=== PATIENT | male | born 1975 | race Caucasian/White ===

== ENCOUNTER 2021-02-15 22:34 | Emergency (ER) | payer OTHER, SELFPAY ==
[2021-02-15 22:45] VITALS: BP 160/98; PULSE 58; RESP 15; TEMP 36.8; O2SAT 99
--- NOTE | 2021-02-16 01:23 | ED.SKABFB ---
HPI - Skin/Abscess/Foreign Bdy General Chief complaint: Skin/Abscess/Foreign Body Stated complaint: bites Time Seen by Provider: 02/16/21 01:09 Source: patient and RN notes reviewed Mode of arrival: ambulatory Limitations: no limitations History of Present Illness HPI narrative: This is a 45 year old male who presents for evaluation of a rash to his back. He states last night he woke up with feeling itching on his back like he was bit by an insect. He continued to having itching so he asked his to look at his back tonight. His noticed 2 large itching spots on his back. He took Benadryl and applied some cream without any relief. He states it is not tender. He denies nausea, vomiting or fever. She denies any additional rashes. Related Data Allergies Allergy/AdvReac Type Severity Reaction Status Date / Time Sulfa (Sulfonamide Allergy Unknown Rash Verified 05/24/20 14:33 Antibiotics) venom-wasp Allergy Unknown swelling,it Verified 05/24/20 14:33 aida Review of Systems Review of Systems: All systems reviewed & are unremarkable except as noted in HPI and below Constitutional: Constitutional: Denies chills, Denies fever(s) and Denies weakness Cardiovascular: Cardiovascular: Denies chest pain Respiratory: Respiratory: Denies dyspnea Gastrointestinal: Gastrointestinal: Denies nausea and Denies vomiting Integumentary/Breasts: Skin/Breast: Reports pruritus, Reports erythema and Reports rash PMFSH Past Medical History Medical History Pure hypercholesterolemia Surgical History Surgical History History of vasectomy Family History Family History Mother Family history of Alzheimer's disease Social History Social History Smoking status: Never smoker Alcohol intake: current Drinks per week: 6 Substance use: never Substance use type: does not use Gender identity (if verbalized by the patient): Male Exam Const: General: no acute distress and alert Orientation/consciousness: patient oriented x3 Resp: Effort & Inspection: normal respiratory effort Skin: Other: on patient's back there are 2 lumps approximate 6 x 7 cm there have erythematous but blanching no fluctuance, no tenderness. Neuro: General: patient oriented x3, moves all extremities and CN's II-XI intact bilaterally Psych: Mental Status: mental status grossly normal Affect: normal affect Course Reevaluation(s) Reevaluation #1: I performed a bedside US. no abscess seen. This is likely an allergic response but will place on antibiotics. Date: 02/16/21 Time: 01:28 Vital Signs Vital signs: Vital Signs Temperature 98.3 F 02/15/21 22:45 Pulse Rate 58 L 02/15/21 22:45 Respiratory Rate 15 02/15/21 22:45 Blood Pressure 160/98 H 02/15/21 22:45 Pulse Oximetry 99 02/15/21 22:45 Temperature 98.3 F 02/15/21 22:45 Pulse Rate 60 02/16/21 02:10 Respiratory Rate 18 02/16/21 02:10 Blood Pressure 142/71 H 02/16/21 02:10 Pulse Oximetry 99 02/15/21 22:45 Discharge Plan Discharge Clinical Impression: Rash, Infected insect bite of back Patient Disposition: Home, Self-Care Condition: Stable Instructions: Antibiotic Form, Cellulitis (ED), Insect Bite or Sting (ED) Additional Instructions: Apply warm compress to wounds 3 times a day. Take benadryl or allergy medication for itching. Take antibiotics as prescribed. REturn if you develop fever, vomiting, weakness, difficulty breathing or pain. Prescriptions: New doxycycline monohydrate 100 mg tablet 100 mg PO BID Qty: 20 RF: 0 No Action valacyclovir [Valtrex] 1 gram tablet See Rx Instructions .ROUTE .COMPLEX Qty: 28 RF: 5 Follow-up/Referrals: Felix Otto MD [Primary Care Provider] -
[2021-02-16 02:10] VITALS: BP 142/71; PULSE 60; RESP 18
[2021-02-16] MEDS: DOXYCYCLINE HYCLATE 100 MG TABLET PO (02:10)
== END 2021-02-16 02:10 | disposition home or self-care (01) ==
PROVIDERS: Emergency Provider General Practice; PCP Family Medicine
DX: R21 Rash and other nonspecific skin eruption (principal); S20.462A Insect bite (nonvenomous) of left back wall of thorax, initial encounter; S20.461A Insect bite (nonvenomous) of right back wall of thorax, initial encounter; E78.00 Pure hypercholesterolemia, unspecified; W57.XXXA Bitten or stung by nonvenomous insect and other nonvenomous arthropods, initial encounter
CPT/HCPCS: 99283; A9270

== ENCOUNTER 2025-05-30 00:46 | Day surgery (SDC) | payer OTHER, SELFPAY ==
[2025-05-25 12:10] VITALS: BMI 24.7
--- NOTE | 2025-05-25 12:16 | PC.NURSE ---
Report to the Outpatient Waiting Room, entrance under the green pavilion located off [facility], at time 0800_ on date _05/30/25 Planned Procedure Time: _1000_.? Time changes happen often and if your time is changed the preop area will call you the afternoon before. - You and your visitor will be asked to self-screen and do not enter if you have any COVID symptoms. Please call surgeon if you need to reschedule. - A mask is optional within the hospital at this time. Patients may have clear liquids (water, carbonated beverages, clear teas, apple juice) until 3 hours prior to surgery with a maximum of 20 ounces. - No food from midnight until time of surgery and no smoking, or chewing tobacco (or any form of nicotine). No chewing gum, candy or mints. - Infants may have breast milk until 4 hours before surgery, infant formula 6 hours prior to surgery. - Children will be allowed to drink immediately following surgery.? If applicable, please bring a bottle or sippy cup to assist with drinking. Juice, water, soda, and popsicles are readily available.? For infants on formula, please bring formula the day of surgery.? Pacifiers are allowed. Take only the following medications with a SIP of water on the morning of surgery: ____none DO NOT STOP ANY OF YOUR OTHER PRESCRIPTION MEDICATIONS PRIOR TO SURGERY EXCEPT THE FOLLOWING Hold all vitamins and supplements for 3 days per anesthesiologist. Medications to discontinue per physician Date to take last dose Please no make-up, nail comoran, hairspray, perfume, deodorant, or body powder the day of surgery.? No jewelry (including any body piercings) or valuables the day of surgery, leave them at home.? Please take a shower or bath the night before, or the morning of, surgery with hibiclens antibacterial soap.? Wear comfortable, loose fitting clothing.? Children are encouraged to wear pajamas. - Jewelry must be removed prior to entering the operating room.? Rings and piercings that are not removed may be cut off. - The hospital will not accept responsibility for valuables.? - Please leave all valuables, including medications, at home the day of surgery. If you are going home after surgery, a licensed driver messenger must drive you home.? - NO public transportation without another adult if you receive anesthesia. - We recommend that an adult stay with you for 24 hours following discharge. - We also recommend that you do not drive, make important decision, drink alcoholic beverages, or take any drugs that were not prescribed by your health care provider for at least 24 hours after your discharge time. For Pediatric surgeries, we recommend two adults accompany the child home. Follow any additional instructions given to you from your surgeon. Telephone instructions given to patient__and asked if any additional questions and then verbalized understanding. Patient advised to call surgeon office or pre surgery nurse liaison [phone] if any additional questions.
[2025-05-30] VITALS (8 sets, daily range): BP systolic 124–162; BP diastolic 72–95; PULSE 62–88; RESP 14–20; TEMP 36.3–36.6; O2SAT 97–100; BMI 24.7
--- OUTSIDE RECORDS SUMMARY | 2025-05-30 00:50 | XMS_ITS | Clinical Summary ---
Author Organization [facility] Address [facility] [place] [address] Care Team Providers Care Ore Dryer Name Role Phone Felix Otto MD Primary Care Provider [phone] Source Comments [facility],non-owned Affiliates and Associated Physician Practices is amultiple site organization consisting of ambulatory clinics and hospital sitesin [place], [place], [place] and [place]. This disclosure is being madepursuant to the Care Everywhere program and may not contain all information available regarding this patient. Last updated 18.[facility] Allergies Active Allergy Reactions Criticality Noted Date Comments Sulfa Drugs Urticaria Medium 01/21/2022 Medications * Be aware that medications may not be up to date on this document. Alwaysverify current medications with the patient. EPINEPHrine (EPIPEN) 0.3 MG/0.3ML auto-injector pen Inject 1 mg into muscle as needed 04/17/2021 Active valACYclovir (VALTREX) 1 GM tablet Take 1,000 mg by mouth every 12 hours 07/24/2021 Active Social History Tobacco Use Types Packs/Day Years Used Date Smoking Tobacco: Never Smokeless Tobacco: Never Alcohol Use Standard Drinks/Week Comments Yes 0 (1 standard drink = 0.6 oz pur e alcohol) Sex and Gender Information Value Date Recorded Sex Assigned at Not on file Legal Sex Male 1:48 PM CDT Gender Identity Not on file Sexual Orientation Not on file Plan of Treatment Health Maintenance Due Date Last Done Comments COLOGUARD (AGES 45-75) - COL ON CA SCREENING 1974 COLON MONITORING 1974 COLONOSCOPY - COLON CA SCREENING 1974 CT COLONOGRAPHY - COLON CA SCREENING 1974 Colorectal Cancer Screening 1974 FIT - COLON CA SCREENING 1974 FLEX SIG - COLON CA SCREENING 1974 LIPID TESTING 1974 HIV SCREENING 1989 HEPATITIS C SCREENING 07/07/1992 DTAP/TDAP/TD VACCINES (1 - Tdap) 1993 HEPATITIS B VACCINE (1 of 3 - 19+ 3-dose series) 1993 PNEUMOCOCCAL VACCINE 50+ (1 of 1 - PCV) 2024 ZOSTER VACCINE (1 of 2) 2024 DEPRESSION SCREENING 09/08/2024 COVID-19 VACCINE (1 - 2023-2 5 season) 2025 INFLUENZA VACCINE (#1) 2025 HIB VACCINE Aged Out No longer eligi ble based on patient's age to complete this topic HPV VACCINE Aged Out No longer eligi ble based on patient's age to complete this topic MENINGOCOCCAL (Group B) VACC INE SHARED DECISION-MAKING Aged Out No longer eligibl e based on patient's age to complete this topic MENINGOCOCCAL GROUPS A/C/Y/W VACCINE Aged Out No longer eligible b ased on patient's age to complete this topic Insurance [facility] [address] Care Teams Ore Dryer Relationship Specialty Start Date End Date Felix Otto MD [address] [place] [address] PCP - General 01/08/22
[2025-05-30] MEDS: LACTATED RINGERS 1,000 ML 30 ML IV CONT ×2 (08:30→10:33)
[2025-05-30] MEDS: KETOROLAC 15 MG/ML VIAL (*BKC) IV PUSH (08:33)
[2025-05-30] MEDS: ACETAMINOPHEN 500 MG TABLET 1000 MG PO (08:33)
--- NOTE | 2025-05-30 09:07 | P.PNAN_ITS ---
Anes - Initial Pre Proc Eval Procedure: Operation Date: 05/30/25 10:00 Proposed Procedures p Transanal Hemorrhoid Dearterialization - Curt Mckeon MD Date/Time: 05/30/25 09:07 Surgeon: Curt Mckeon MD Pre Op Diagnosis: hemorrhoids Patient Data Age: 49 Gender: M Height: 1.85 m Weight: 85 kg Last Vital Signs Temp 36.6 C 05/30/25 08:23 Pulse 62 05/30/25 08:23 Resp 14 05/30/25 08:23 BP 124/95 H 05/30/25 08:23 Pulse Ox 98 05/30/25 08:23 O2 Del Method Room Air 05/30/25 08:23 Allergies Allergy/AdvReac Type Severity Reaction Status Date / Time Sulfa (Sulfonamide Allergy Unknown Rash Verified 05/30/25 08:22 Antibiotics) venom-wasp Allergy Unknown swelling,it Verified 05/30/25 08:22 aida Home Medications ?Medication ?Instructions ?Recorded ?Confirmed ?Type lidocaine HCl 3 % topical cream 1 applic topical ONCE PRN pain 05/01/23 05/25/25 Rx #28.3 grams valacyclovir 1 gram tablet 1,000 mg PO Q12H PRN outbre ak 05/25/25 05/25/25 History (Valtrex) Patient hx anesthesia problems: none Family hx anesthesia problems: none Results Review: All pre-operative results and documents have been reviewed as part of the pre- operative evaluation. [facility] Past Medical History Medical History Pure hypercholesterolemia Surgical History Surgical History History of vasectomy Family History Family History Mother Family history of Alzheimer's disease Father Arthralgia Sibling Arthralgia Social History Social History Smoking status: Never smoker Second hand tobacco smoke exposure: No Alcohol intake: current Drinks per week: 6 Substance use: never Substance use type: does not use Do You Feel Safe in your Home?: Yes Lack of Transportation: No Lack of Food: Never True Current Housing: I Have Housing Concerned About Future Housing: No Difficulty Paying Gas/Electric Bills: No Difficulty Paying for Meds: No Currently Unemployed: No Education: Master's Degree or Higher Difficulty w/ Childcare or Family Care: No Living arrangements: with family Occupation/Education: occupation Gender identity (if verbalized by the patient): Male Sexual Orientation (if Verbalized by the Patient): Straight or Heterosexual Spiritual care concerns: No Anes - Eval Final PreProcedure Day of Procedure 05/30/25 09:07 Patient weight: normal Heart: regular rate and rhythm Lungs: clear to auscultation Airway: Mallampati scale class II Neurological: alert and oriented Last oral intake: >/= 8 hours ASA classification: II Emergent: no Anesthetic plan: proceed Anesthesia type and monitoring: general ETT and standard monitoring Results Review: All pre-operative results and documents have been reviewed as part of the pre-operative evaluation. Informed Consent: The patient's anesthetic plan and its attendant risks and benefits were discussed with the patient/family/POA. Questions were solicited and answers provided to the satisfaction of the patient/family/POA.
--- NOTE | 2025-05-30 09:10 | WPDHPUPDATE1 ---
History and Physical Update Update Date/Time: 05/30/25 09:10 History and Physical has been reviewed, including an updated exam of the patient. There are NO changes in the patient's condition. Risks, benefits, and alternatives have been discussed and questions answered. Patient agrees to proceed with procedure.
[2025-05-30] MEDS: ceFAZolin 2 GM in SODIUM CHLORIDE 0.9% IV 50 ML 100 ML IVPB (09:19)
[2025-05-30] MEDS: LIDO 1%/EPINEPHRINE 1:100,000 50 ML VIAL 30 ML INFILTRATE (09:43)
--- NOTE | 2025-05-30 10:42 | W.PM.PROC2 ---
Procedure Note - Detailed Date of Procedure 05/30/25 Pre-op Diagnosis Bleeding internal hemorrhoids Post-op Diagnosis Same Procedure Performed Transanal hemorrhoidal dearterialization procedure (ultrasound Doppler localized ligation of terminal branches up hemorrhoidal arteries with proctopexy of prolapsing mucosal tissue.) Surgeon Curt Mckeon MD Health Physicist Caio Sanchez SA Anesthesia General Indications Patient is a 49-year-old gentleman presented with complaints of very frequent bleeding from his internal hemorrhoids. On examination he had large grade 3 nonthrombosed prolapsing internal hemorrhoids. He presents now for a THD procedure. Findings Patient had large nonthrombosed grade 3 prolapsing internal hemorrhoids located at the 3 o'clock, 9 o'clock, and 12 o'clock positions with the patient prone. No is or lesions in the anal canal. No significant external hemorrhoid tissue. Description of Procedure After informed consent was obtained patient brought to the operating room was placed in the supine position on the gurney and then placed under general endotracheal anesthesia. He was then turned onto the operating table in the prone awilda-knife position taking great care to make sure all the pressure points were well padded. The buttocks were then taped apart to expose the perianal region and then the area was prepped and draped in usual sterile fashion. Time-out was then performed correctly identifying the patient as well as procedure to be performed. Perioperative IV antibiotics were given. I 1st started by performing gentle manual dilation of the anal sphincters with lubricated bivalve anal speculum. I performed a circumferential evaluation of the anal canal and distal rectum there were no polyps or lesions in these areas. He had 3 large prolapsing internal hemorrhoids which were not thrombosed located at the 3 o'clock, 9 o'clock, and 12 o'clock positions with the patient prone. I then proceeded to use the specialized THD anal speculum which had a Doppler ultrasound probe attached to identify the terminal branches of the hemorrhoidal arteries located at the 1 o'clock, 3 o'clock, 5 o'clock 7 o'clock, 9 o'clock, and 11 o'clock positions. Good Doppler biphasic signals were obtained at each position and at each position a 0 Vicryl suture was placed to ligate the terminal branch of the hemorrhoidal artery. The needle operator and truck driver was placed into the specialized pivot point in the THD speculum and the suture was then passed through the slot at the end of the speculum to then place a anchoring ligating suture at each of those positions. I then proceeded to perform proctopexy of the prolapsing mucosal tissue and hemorrhoidal tissue extending all the way down to the dentate line by running the 0 Vicryl suture and a continuous nonlocking fashion. The suture was then tied down sliding the prolapsing tissue up into the anal canal above the dentate line so that we will no longer prolapse. This was done at all 6 of the above-mentioned positions. The anal canal was then irrigated sterile saline solution. Hemostasis was good at all the suture lines at the sites of the proctopexy. The anal canal opening was not significantly narrowed with a THD procedure by palpation. I then proceeded to inject a perianal block utilizing 0.5% Marcaine mixed with 1% lidocaine with some epinephrine. I then administered bilateral pudendal nerve blocks as well. There is then cleaned and then 4x4 gauze ABD pad and disposable underwear was used for final dressing. The patient tolerated the procedure well no complications. All sponges, needles, and instrument counts were correct at the end procedure. EBL was _25__cc. The patient was awakened and taken to recovery in stable and satisfactory condition. Implants None Estimated Blood Loss 25 Drains No Packing No Pathology None sent Complications No immediate complications Condition Stable Disposition PACU [facility] Billing Surgery - Charge Forward: Surgery Billing
[2025-05-30] MEDS: oxyCODONE HCL (*CRX) 5 MG TAB IR PO (11:57)
== END 2025-05-30 12:30 | disposition home or self-care (01) ==
PROVIDERS: PCP Family Medicine; Visit Provider Surgery
PROC: (CPT 46948; principal; 2025-05-30 10:00)
DX: K64.2 Third degree hemorrhoids (principal)
CPT/HCPCS: 46948; J0690; A9270; J1100; J1885; J2003; J2004; J2250; J2405; J2704; J3010; J7120

== ENCOUNTER 2025-06-03 18:26 | Emergency (ER) | payer OTHER, SELFPAY ==
--- NOTE | ~2025-06-03 | CT_ITS ---
CT abdomen pelvis w con Clinical History: abd pain, r/o sbo . Comparison: None Technique: Axial images lung bases to symphysis pubis 100 mL IV contrast Coronal, sagittal reformats CT images acquired with automatic exposure control for dose reduction DLP: 408 mGy-cm Findings: Lung bases: Clear. Visualized heart and pericardium: Unremarkable. Liver: Enlarged. Steatosis. Gallbladder: Unremarkable. Spleen: Unremarkable. Pancreas: Unremarkable. Adrenal glands: Unremarkable. Kidneys: Right kidney- No hydronephrosis. No renal stones. Left kidney- No hydronephrosis. No renal stones. Distal esophagus/stomach: Unremarkable. Small bowel loops: Normal caliber and wall thickness. Colon: Normal caliber and wall thickness. Normal RLQ appendix. Rectum stool- filled. Question mild diverticulitis sigmoid colon, axial image 126. A few diverticula. Nodes: No enlarged nodes. Peritoneum: No ascites. No free air. Urinary bladder: Unremarkable. Prostate: Unremarkable. Bones: No acute bony abnormality. Soft tissues: Unremarkable. Aorta: No aneurysm or dissection. IVC: Unremarkable. Main portal vein/SMV/splenic vein: Patent. Called by phone by myself to Dr. Weeks at 9:06 am EST. IMPRESSION: 1. Mild uncomplicated sigmoid diverticulitis not excluded. 2. Otherwise no acute abnormality. Reviewed, dictated and finalized at location R.
--- NOTE | ~2025-06-03 | XR_ITS ---
XR abdomen/kub 1V 06/03/2025 19:50 INDICATION: Constipation TECHNIQUE: KUB COMPARISON: None FINDINGS: Bowel gas pattern is normal. There is moderate retained fecal material in the distal colon and rectum. There is no evidence of free air, mass, organomegaly, ascites or obstruction. No abnormal calculi are seen. The bones appear intact. IMPRESSION: 1: No acute abdominal abnormality identified. Reviewed, dictated and finalized at location O.
[2025-06-03 19:10] VITALS: BP 176/103; PULSE 75; RESP 22; TEMP 36.6; O2SAT 98
[2025-06-03 21:44] VITALS: BP 168/91; PULSE 66; RESP 17; O2SAT 99
[2025-06-03 21:45] VITALS: BP 168/91; PULSE 69; RESP 18; O2SAT 98
[2025-06-03 21:57] LABS: Hematocrit 37.9 % (42.0-52.0); Hemoglobin 13.0 g/dL (14.0-18.0); Immature Granulocyte Percent A 0.4 % (0-0.5); Lymphocytes Absolute Auto 1.25 K/mm3 (0.9-3.2); Mean Corpuscular HGB Conc 34.3 g/dl (32-36); Mean Corpuscular Hemoglobin 29.5 pg (26-34); Mean Corpuscular Volume 86.1 fl (80-100); Nucleated Red Blood Cells Absolute Auto 0.000 K/mm3 (0.0-0.012); Nucleated Red Blood Cells Perc 0.0 % (0.0-0.2); Platelet Count Result 262 k/mm3 (150-375); Red Blood Count 4.40 M/mm3 (4.6-6.20); White Blood Count 13.9 K/mm3 (4.5-10.0)
[2025-06-03 22:11] LABS: Alanine Aminotransferase 40 U/L (6-50); Albumin Level 4.5 g/dL (3.5-5.1); Alkaline Phosphatase 81 U/L (38-126); Anion Gap 8 mmol/L (4-12); Aspartate Amino Transferase 30 U/L (17-59); Bilirubin,Total 1.1 mg/dL (0.2-1.3); Blood Urea Nitrogen 14 mg/dL (9-20); Calcium 8.8 mg/dL (8.4-10.2); Carbon Dioxide 26 mmol/L (22-30); Chloride 101 mmol/L (98-107); Estimated CRCL calculation 87 ml/min; Estimated Glomerular Filt Rate > 60; Glucose 113 mg/dL (65-110); Lipase 29 U/L (23-300); Potassium 3.4 mmol/L (3.4-5.0); Sodium 135 mmol/L (137-145); Total Protein 7.7 g/dL (6.3-8.2)
[2025-06-03] MEDS: SODIUM CHLORIDE 0.9% IV 1,000 ML 999 ML IV CONT (22:24)
--- NOTE | 2025-06-03 22:28 | PC.NURSE ---
Patient attempted to provide urine sample, unsuccessful. Patient declines request for straight cath. Patient states he will attempt to provide sample after some fluids infuse. NS bolus started per orders. Call light within reach.
--- NOTE | 2025-06-03 22:34 | PC.NURSE ---
Patient in CT at this time.
[2025-06-03 23:17] LABS: Magnesium 2.2 mg/dL (1.6-2.3)
[2025-06-03 23:37] VITALS: PULSE 74; RESP 17; O2SAT 99
--- NOTE | 2025-06-03 23:38 | PC.NURSE ---
Patient states he has had multiple small BMs but its marva sometimes but this last time it was a little more. Patient c/o pain to his rectum. ERP notified. Urine sample sent.
[2025-06-03 23:41] LABS: Add Urine Microscopic? NO; Appearance Urine Clear (Clear); Glucose Urine UA Negative (Negative); Leukocyte Esterase Ur Negative LEU/UL (Negative); Nitrate Urine Negative (Negative); Specific Grav Ur 1.038 (1.001-1.035)
--- NOTE | 2025-06-04 00:40 | PC.NURSE ---
Patient informs this RN that he had a successful large BM. ERP notified.
--- NOTE | 2025-06-04 00:49 | ED.ABDPAIN ---
HPI - Abdominal Pain General Chief Complaint: Abdominal Pain Stated Complaint: abd pain, constipation Time Seen by Provider: 06/03/25 21:45 History of Present Illness HPI narrative: Patient is a 49-year-old male who presents emergency department this evening complaining of constipation. Patient states that he has not had bowel movement in approximately 1 week since he has had a trans anal hemorrhoid the arterials a [place] procedure performed by Dr. Mckeon on 05/30. He has been on narcotics. Denies any rectal bleeding. Patient has been using [id number] therapies for constipation including prune juice, Dulcolax and probiotics with no relief. He does admit that he has passed some gas and pulse I stool but otherwise has not had a full bowel movement in approximately 1 week. States that he does have some pressure to his rectum. No additional symptoms or concerns at this time. Related Data Home Medications ?Medication ?Instructions ?Recorded ?Confirmed ?Last Taken ?Type valacyclovir 1 gram tablet 1,000 mg PO Q12H PRN outbreak 05/25/25 05/25/25 Unknown History (Valtrex) Allergies Allergy/AdvReac Type Severity Reaction Status Date / Time Sulfa (Sulfonamide Allergy Unknown Rash Verified 06/03/25 21:46 Antibiotics) venom-wasp Allergy Unknown swelling,it Verified 06/03/25 21:46 aida Review of Systems Review of Systems: All systems are reviewed and are negative unless stated otherwise in the HPI. [facility] Past Medical History Medical History Pure hypercholesterolemia Surgical History Surgical History History of vasectomy Family History Family History Mother Family history of Alzheimer's disease Father Arthralgia Sibling Arthralgia Social History Social History Smoking status: Never smoker Second hand tobacco smoke exposure: No Alcohol intake: current Drinks per week: 6 Substance use: never Substance use type: does not use Do You Feel Safe in your Home?: Yes Lack of Transportation: No Lack of Food: Never True Current Housing: I Have Housing Concerned About Future Housing: No Difficulty Paying Gas/Electric Bills: No Difficulty Paying for Meds: No Currently Unemployed: No Education: Master's Degree or Higher Difficulty w/ Childcare or Family Care: No Living arrangements: with family Occupation/Education: occupation Gender identity (if verbalized by the patient): Male Sexual Orientation (if Verbalized by the Patient): Straight or Heterosexual Spiritual care concerns: No Exam Narrative: General: Alert, awake, afebrile, in no acute distress. HEENT: PERRL, no rhinorrhea, no post nasal drip, oropharynx clear. Neck: Trachea midline, no JVD, no lymphadenopathy. Cardiovascular: Regular rate and rhythm, no murmurs, rubs or gallops, no peripheral edema. Respiratory: Clear to auscultation bilaterally, no tachypnea, no wheezing, no rhonchi, no rubs, no respiratory distress. Abdomen: Soft, nontender, nondistended, no rebound, no guarding, no peritoneal signs. Rectal: Exam performed with the presence of female nurse senior data mining analyst Irene revealed good rectal tone, no evidence of external hemorrhoids, fecal occult blood test negative, stool is medium to light brown in color, no fecal impaction, no bleeding. Musculoskeletal: No joint swelling or deformity, normal muscle tone. Skin: No rashes or petechia, no signs of infection. Psychiatric: Alert and oriented, normal behavior and judgment for situation. Neurological: Alert and oriented to person, place, and time. Follows all commands. No focal deficits, speech is clear and fluent. Course Vital Signs Vital signs: Vital Signs Temperature 97.8 F 06/03/25 19:10 Pulse Rate 75 06/03/25 19:10 Respiratory Rate 22 H 06/03/25 19:10 Blood Pressure 176/103 H 06/03/25 19:10 Pulse Oximetry 98 06/03/25 19:10 Temperature 97.8 F 06/03/25 19:10 Pulse Rate 74 06/03/25 23:37 Respiratory Rate 17 06/03/25 23:37 Blood Pressure 168/91 H 06/03/25 21:45 Pulse Oximetry 99 06/03/25 23:37 Oxygen Delivery Room Air 06/03/25 21:45 MDM - Abdominal Pain MDM Narrative Medical decision making narrative: The patient was evaluated by myself in the emergency department. History is obtained from patient who is an independent historian and physical exam was performed. External medical records were reviewed at this time. IV was established and pertinent tests were ordered. Patient was administered 1 L IV fluid bolus with normal saline. Laboratory results obtained revealing leukocytosis of 13.9, otherwise unremarkable. Urinalysis unremarkable. Imaging studies obtained included abdominal x-ray which was independently interpreted by me revealing no acute process, which is pending final radiology interpretation. At this time, CT abdomen pelvis with IV contrast was obtained and inability interpreted by me revealing no acute process, no evidence of bowel obstruction, moderate amount of stool throughout the colon, large amount of stool in the rectum, normal appendix. Differential diagnosis considerations include bowel obstruction, constipation, fecal impaction. Comorbidities impacting this visit include recent hemorrhoid surgery and current narcotic use. I have evaluated and discussed social determinants of health with the patient that could potentially impact subsequent diagnosis and treatment plans. On repeat assessment of the patient, reevaluation revealed that the patient is doing well and is in no acute distress. Patient symptoms have improved since he arrived to our emergency department. Patient has had multiple bowel movements while waiting in the emergency department and states that he feels significantly better. Repeat vital signs were all reviewed and noted to be stable. Differential diagnosis and treatment plan were discussed with the patient at bedside. Patient agrees with discussion and after shared medical decision making agrees with discharge. All questions were answered to the patient's satisfaction. Patient will follow up with his PCP/ General Surgeon in 3-5 days. Patient was provided with strict return precautions and instructed to return to the emergency department if any new or worsening symptoms develop. The patient was discharged in stable condition. Lab Data 06/03/25 21:52 06/03/25 21:52 Labs: Lab Results 06/03/25 06/03/25 06/03/25 Range/Units 21:51 21:52 23:33 WBC 13.9 H (4.5-10.0) K/mm3 RBC 4.40 L (4.6-6.20) M/mm3 Hgb 13.0 L (14.0-18.0) g/dL Hct 37.9 L (42.0-52.0) % MCV 86.1 (80-100) fl MCH 29.5 (26-34) pg MCHC 34.3 (32-36) g/dl RDW 12.7 (11.5-14.5) % Plt Count 262 (150-375) k/mm3 MPV 9.7 (7.4-10.4) fl Immature Gran % (Auto) 0.4 (0-0.5) % Neut % (Auto) 84.7 H (45.5-73.1) % Lymph % (Auto) 9.0 L (18.3-44.2) % [place] % (Auto) 5.4 (2.6-8.5) % Eos % (Auto) 0.4 (0-4.4) % Baso % (Auto) 0.1 L (0.2-1.2) % Lymph # (Auto) 1.25 (0.9-3.2) K/mm3 [place] # (Auto) 0.8 H (0.1-0.6) K/mm3 Eos # (Auto) 0.1 (0-0.3) K/mm3 Baso # (Auto) 0.0 (0.0-0.1) K/mm3 Abs Immat Gran (auto) 0.05 H (0.00-0.031) K/mm3 Absolute Neuts (auto) 11.7 H (1.3-6.7) K/mm3 Absolute Nucleated RBC 0.000 (0.0-0.012) K/mm3 Nucleated RBC % 0.0 (0.0-0.2) % Sodium 135 L (137-145) mmol/L Potassium 3.4 (3.4-5.0) mmol/L Chloride 101 (98-107) mmol/L Carbon Dioxide 26 (22-30) mmol/L Anion Gap 8 (4-12) mmol/L BUN 14 (9-20) mg/dL Creatinine 1.02 (0.7-1.3) mg/dL Estim Creat Clear Calc 87 ml/min Estimated GFR > 60 (59 - ) Glucose 113 H (65-110) mg/dL Calcium 8.8 (8.4-10.2) mg/dL Magnesium 2.2 (1.6-2.3) mg/dL Total Bilirubin 1.1 (0.2-1.3) mg/dL AST 30 (17-59) U/L ALT 40 (6-50) U/L Alkaline Phosphatase 81 (38-126) U/L Total Protein 7.7 (6.3-8.2) g/dL Albumin 4.5 (3.5-5.1) g/dL Lipase 29 (23-300) U/L Urine Color Yellow (Yellow) Urine Appearance Clear (Clear) Urine pH 8.0 (5.0-9.0) Ur Specific [place] 1.038 H (1.001-1.035) Urine Protein Negative (Negative) mg/dL Urine Glucose (UA) Negative (Negative) mg/dL Urine Ketones 1+ H (Negative) mg/dL Ur Blood (Man) Negative (Negative) Urine Nitrate Negative (Negative) Urine Bilirubin Negative (Negative) Urine Urobilinogen 0.2 (<2.0) mg/dL Leukocyte Esterase Rfl Negative (Negative) TOBIAS/UL Imaging Data Radiologist's impression: ITS Impressions Abdomen X-Ray 06/03/25 19:55 IMPRESSION: 1: No acute abdominal abnormality identified. Discharge Plan Discharge Clinical Impression: Constipation Patient Disposition: Home Condition: Improved Instructions: Constipation (DC), Abdominal Pain (ED) Additional Instructions: Please follow-up with your family doctor/general surgeon within the next 3-5 days. Increase your fluid intake/water intake to help regulate her bowel movements. Stop taking the narcotics your prescribed as this is likely the cause of your constipation. Patient Language: [place] Prescriptions: No Action lidocaine HCl 3 % cream 1 applic topical ONCE PRN (Reason: pain) Qty: 28.3 1RF valacyclovir [Valtrex] 1 gram tablet 1,000 mg PO Q12H PRN (Reason: outbreak) oxycodone 5 mg tablet 5 mg PO Q6H PRN (Reason: pain) Qty: 25 0RF Follow-up/Referrals: Felix Otto MD [Primary Care Provider, Family Practice] - 3 Days Time of Disposition: 00:54
[2025-06-04 00:50] VITALS: O2SAT 100
[2025-06-04 01:00] VITALS: BP 151/95; PULSE 72; RESP 18; O2SAT 96
[2025-06-04 01:01] VITALS: O2SAT 97
== END 2025-06-04 01:18 | disposition home or self-care (01) ==
PROVIDERS: Emergency Provider Emergency Medicine; PCP Family Medicine
DX: K59.00 Constipation, unspecified (principal); E78.00 Pure hypercholesterolemia, unspecified
CPT/HCPCS: 36415; 74018; 74177; 80053; 81003; 83690; 83735; 85025; 96360; 99284; J7030; Q9967

== ENCOUNTER 2025-09-07 10:58 | Outpatient (CLI) | payer OTHER, SELFPAY | END 2025-09-07 10:59 | disposition home or self-care (01) | LOC: ANHAUDASC 10:58 | PROVIDERS: PCP Family Medicine; Visit Provider Physician Assistant Medical | DX: H90.3 Sensorineural hearing loss, bilateral (principal) | CPT/HCPCS: 92557 ==